=== PATIENT | male | born 1970 ===

== ENCOUNTER 2024-10-23 14:55 | Emergency (ER) | payer OTHER ==
[2024-10-23 15:21] VITALS: BP 142/81; PULSE 67
== END 2024-10-23 17:13 | disposition home or self-care (01) ==
LOC: MW.ED 14:55
DX: M71.22 Synovial cyst of popliteal space [Baker], left knee (principal); Z75.3 Unavailability and inaccessibility of health-care facilities
CPT/HCPCS: 93971-26-LT; 93971-LT; 99283